=== PATIENT | male | born 1950 | race Caucasian/White ===

== ENCOUNTER 2023-05-23 13:09 | Emergency (ER) | payer MEDICARE, BC, SELFPAY ==
[2023-05-23 13:18] VITALS: BP 113/73; PULSE 89; RESP 16; TEMP 37; O2SAT 95; BMI 22.9
--- NOTE | 2023-05-23 14:17 | ED.GENADULT ---
HPI - General Adult General Date Seen: 05/23/23 Chief complaint: Unspecified Complaint, Adult Stated complaint: pain Time Seen by Provider: 05/23/23 14:07 Source: patient Mode of arrival: ambulatory Limitations: no limitations History of Present Illness HPI narrative: Patient is a 73-year-old male here for refill of his seizure medication. 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 When he arrived he stated they were out of the medication tried few other places. He phone 1 pharmacy that has not but he needed a new prescription for it. He tried to get a hold of his primary doctor that prescribes it but was on able to and was told to come to the emergency department for a refill. States he has asymptomatic and has not had a seizure in over a year Related Data Home Medications Medication Instructions Recorded Confirmed levetiracetam 500 mg tablet 500 mg PO BID 01/07/22 05/23/23 phenytoin sodium extended 100 mg 300 mg PO QDAY 01/07/22 05/23/23 capsule phenytoin sodium extended 30 mg 30 mg PO QPM 01/07/22 05/23/23 capsule (Dilantin) Previous Rx's Medication Instructions Recorded simvastatin 40 mg tablet 40 mg PO QDAY #30 tabs 11/04/22 phenytoin sodium extended 30 mg 30 mg PO Q8H #14 caps 05/23/23 capsule (Dilantin) Allergies Allergy/AdvReac Type Severity Reaction Status Date / Time No Known Allergies Allergy Unknown Unknown Verified 05/23/23 13:28 Review of Systems Status of ROS: Reports: 6 or more systems reviewed and unremarkable except as noted in History and below [facility] Medical History History of seizure ?Z87.898 - Personal history of other specified conditions (ICD-10) Social History Smoking Status: Never smoker Do you use any of these nicotine containing products: None Second hand tobacco smoke exposure: No How often do you have a drink containing alcohol: never AUDIT-C Alcohol total score: 0 Non-prescribed substance use: denies use Little interest or pleasure in doing things: not at all Feeling down, depressed, or hopeless: not at all Exam Narrative: Exam Narrative: Const: Well-nourished, Well-developed, in no distress Eyes: PERRL, no conjunctival injection, and symmetrical lids HENT: Atraumatic external nose and ears. Moist mucous membranes. Neck: Symmetric, trachea midline, No thyromegaly. CVS: RRR, No murmurs or gallops. Peripheral pulses 2+ and equal in all extremities RESP: Unlabored respiratory effort. Clear to auscultation bilaterally. GI: Nontender/Nondistended, No rebound or guarding. MSK:Extremities w/o deformity, Normal Active ROM Skin: Warm, Dry. No rashes or lesions. Neuro: Normal Muscle tone, No focal neurological deficits. Psych: Awake, Alert, & Oriented x3. Appropriate mood and affect. Const: Vital Signs, click to edit/add: Vital Signs - 24 hr 05/23/23 13:18 Temperature 98.6 F Pulse Rate [Pulse Oximeter] 89 Respiratory Rate 16 Blood Pressure [Ri ght Upper Arm] 113/73 Pulse Oximetry 95 Oxygen Delivery Me thod Room Air Course Vital Signs Vital signs: Initial Vital Signs Temperature 98.6 F 05/23/23 13:18 Temperature Source Temporal Artery Scan 05/23/23 13:18 Pulse Rate 89 05/23/23 13:18 Respiratory Rate 16 05/23/23 13:18 Blood Pressure 113/73 05/23/23 13:18 Blood Pressure Mean 86 05/23/23 13:18 Blood Pressure Position Sitting 05/23/23 13:18 Pulse Oximetry 95 05/23/23 13:18 Oxygen Delivery Method Room Air 05/23/23 13:18 Vital Signs Temperature 98.6 F 05/23/23 13:18 Pulse Rate 89 05/23/23 13:18 Respiratory Rate 16 05/23/23 13:18 Blood Pressure 113/73 05/23/23 13:18 Pulse Oximetry 95 05/23/23 13:18 Oxygen Delivery Method Room Air 05/23/23 13:18 Temperature 98.6 F 05/23/23 13:18 Pulse Rate 89 05/23/23 13:18 Respiratory Rate 16 05/23/23 13:18 Blood Pressure 113/73 05/23/23 13:18 Pulse Oximetry 95 05/23/23 13:18 Oxygen Delivery Method Room Air 05/23/23 13:18 Medical Decision Making MDM Narrative Medical decision making narrative: Patient is a 71-year-old male presenting for medication refill. 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 Her that I do find reasonable to give him a refill. This was sent in he was sister Discharge Plan Discharge Clinical Impression: Medication refill Patient Disposition: Home, Self-Care Condition: Stable Additional Instructions: Make sure to follow-up with the neurologist to get a longer prescription. Prescriptions: New Dilantin 30 mg capsule 30 mg PO Q8H Qty: 14 2RF No Action simvastatin 40 mg tablet 40 mg PO QDAY Qty: 30 12RF Dilantin 30 mg capsule 30 mg PO QPM levetiracetam 500 mg tablet 500 mg PO BID phenytoin sodium extended 100 mg capsule 300 mg PO QDAY Follow Up/Referrals: Farhan Alvarenga MD [Primary Care Provider] - Stand Alone Forms: [employer] Info Instructions
== END 2023-05-23 14:26 | disposition home or self-care (01) ==
LOC: ED 14:22
PROVIDERS: Emergency Provider Student in an Organized Health Care Education/Training Program; PCP Family Medicine
DX: Z76.0 Encounter for issue of repeat prescription (principal)
CPT/HCPCS: 95992; 99281; 99283

== ENCOUNTER 2023-11-16 08:48 | Outpatient (CLI) | payer MEDICARE, BC, SELFPAY | END 2023-11-16 08:49 | disposition home or self-care (01) | PROVIDERS: PCP Family Medicine; Referring Provider Family Medicine; Visit Provider Family Medicine | DX: Z00.00 Encounter for general adult medical examination without abnormal findings (principal); E78.5 Hyperlipidemia, unspecified; G40.909 Epilepsy, unspecified, not intractable, without status epilepticus; Z12.5 Encounter for screening for malignant neoplasm of prostate; Z87.898 Personal history of other specified conditions | CPT/HCPCS: 80053; 80061; 80177; 80185; G0103 ==

== ENCOUNTER 2024-11-21 08:47 | Outpatient (CLI) | payer MEDICARE, BC, SELFPAY | END 2024-11-21 08:48 | disposition home or self-care (01) | LOC: NFLDREF 11-25 01:30 | PROVIDERS: PCP Family Medicine; Referring Provider Family Medicine; Visit Provider Family Medicine | DX: Z00.00 Encounter for general adult medical examination without abnormal findings (principal); E78.5 Hyperlipidemia, unspecified; G40.909 Epilepsy, unspecified, not intractable, without status epilepticus | CPT/HCPCS: 80053; 80061; 80177; 80185 ==